=== PATIENT | male | born 1965 | race Caucasian/White ===

== ENCOUNTER → 2021-11-02 | Outpatient (CLI) | payer BC, OTHER ==
[~2021-11-02] MED LIST: BAYE81TA10 PO; GLYB5TAB12 PO; JARD1TAB3 PO; LOPI600T PO; LOSA100T5 PO; OMEG1CAP85 PO; OMEP-173 PO; PIOG1TAB37 PO; ROSU5TAB5 PO; TADA10TA PO; TRAD5TAB PO; VITMTA PO
== END ==
LOC: M LABSMTC 11:22
PROVIDERS: ATTEND Anesthesiology
DX: Z01.818 Encounter for other preprocedural examination (principal); Z11.52 Encounter for screening for COVID-19

== ENCOUNTER 2021-11-04 11:40 | Day surgery (SDC) | payer BC, OTHER ==
[~2021-11-04] VITALS: Ht 180.3 cm; Wt 109.5 kg
[2021-11-04] MEDS ORDERED: fentaNYL 100 MCG/2 ML INJECTION As Ordered ONE (13:20)
[2021-11-04] MEDS ORDERED: propofoL 200 MG/20 ML VIAL As Ordered ONE ×2 (13:23→13:48)
[2021-11-04] MEDS ORDERED: LIDOCAINE 2% 100MG/5ML SDV (FOR ANES.) As Ordered ONE (13:23)
[2021-11-04 14:21] VITALS: BP 143/93
== END 2021-11-04 14:22 | disposition home or self-care (01) ==
LOC: M OPP 11:40
PROVIDERS: ATTEND Internal Medicine Gastroenterology
DX: K21.00 Gastro-esophageal reflux disease with esophagitis, without bleeding (principal); K29.70 Gastritis, unspecified, without bleeding; R12 Heartburn; Z79.82 Long term (current) use of aspirin; Z79.84 Long term (current) use of oral hypoglycemic drugs; Z79.899 Other long term (current) drug therapy; Z88.8 Allergy status to other drugs, medicaments and biological substances; Z80.51 Family history of malignant neoplasm of kidney
CPT/HCPCS: 43239; 88305; J3010